=== PATIENT | male | born 1985 | race African-American/Black ===

== ENCOUNTER 2020-09-30 21:58 | Emergency (ER) | payer SELFPAY ==
[~2020-09-30] VITALS: Ht 175.3 cm; Wt 85.0 kg
[2020-09-30 22:43] VITALS: BP 117/77
[2020-10-01] MEDS ORDERED: ACETAMINOPHEN 325MG TABLET PO STA (00:51)
[2020-10-01] MEDS ORDERED: AMOX-494 PO (01:22)
[2020-10-01] MEDS ORDERED: FLUT9.9S BOTHNSTRLS (01:22)
[2020-10-01] MEDS ORDERED: NAPR-681 PO (01:22)
[2020-10-01] MEDS ORDERED: CETI10CA11 PO (01:22)
== END 2020-10-01 01:27 | disposition home or self-care (01) ==
LOC: ER 21:58
DX: H92.01 Otalgia, right ear (principal); H68.101 Unspecified obstruction of Eustachian tube, right ear
CPT/HCPCS: 99283